=== PATIENT | male | born 1980 | race Hispanic/Latino ===

== ENCOUNTER 2017-07-14 12:03 | Emergency (ER) | payer OTHER, SELFPAY ==
[2017-07-14 12:33] LABS: #Basophils 0.1 thou/uL (0.0-0.2); #Lymphocytes 3.1 thou/uL (1.20-3.40); #Monocytes 0.4 thou/uL (0.11-0.59); #Neutrophils 4.1 thou/uL (1.40-6.50); %Eosinophils 0.5 % (0.0-10.0); %Monocytes 5.5 % (0.0-10.0); Hemoglobin 14.8 g/dL (14.0-18.0); Mean Corpuscular HGB CONC 35.2 g/dL (32.0-36.0); Mean Corpuscular Hemoglobin 29.6 pg (27.0-31.0); Mean Corpuscular Volume 84.1 fl (80.0-94.0); Mean Platelet Volume 7.3 fL (7.4-10.4); Platelet Count 344 thou/uL (130-400); RBC Distribution Width 12.5 % (11.5-14.5); Red Blood Cell (RBC) Count 4.99 mill/uL (4.70-6.10); White Blood Cell (WBC) Count 7.7 thou/uL (4.8-10.8)
[2017-07-14 12:58] LABS: ALT (SGPT) 195 U/L (8-55); AST (SGOT) 100 U/L (5-34); Alkaline Phosphatase 106 U/L (40-150); Anion Gap 15 mmol/L (10-20); BUN (Urea Nitrogen) 18 mg/dL (8.9-20.6); Bilirubin, Total 0.5 mg/dL (0.2-1.2); Calc. Creatinine Clearance 0 mL/min (70-130); Calcium 9.8 mg/dL (7.8-10.44); Carbon Dioxide 24 mmol/L (22-29); Chloride 99 mmol/L (98-107); Estimated GFR-MDRD Greater than 90; Glucose 134 mg/dL (70-105); Potassium 4.2 mmol/L (3.5-5.1); Sodium 134 mmol/L (136-145)
[2017-07-14] MEDS ORDERED: Ondansetron ODT 4 MG TAB ONE (13:47)
[2017-07-14] MEDS ORDERED: Morphine 4 MG/ML VIAL ONE (13:47)
[2017-07-14 14:55] LABS: Bilirubin Negative (Negative); Blood, Urine Trace (Negative); Clarity CLEAR (Clear); Glucose, Urine (Dipstick) Negative (Negative); Leukocyte Trace (Negative); Nitrite Negative (Negative); Protein, Urine (Dipstick) Negative (Neg-Trace); Specific Gravity, Urine 1.019 (1.002-1.036); Urobilinogen 0.2 mg/dL (0.2-1.0)
[2017-07-14 14:58] LABS: Bacteria/HPF None Seen HPF (None Seen); Hyaline Casts/LPF 0-3 HYALINE CAST LPF (0-3 Hyaline); Pathc Cast-AUWi Flag 0.14 (0-2.49); RBC/HPF 0-3 HPF (0-3); Squamous Epithelial 0-3 HPF (0-3); WBC/HPF 0-3 HPF (0-3)
[2017-07-14] MEDS ORDERED: ISOVUE-370 76%-LOCM 1 ML ONE (15:05)
[2017-07-14] MEDS ORDERED: Iopamidol 370 76% 50 ML VIAL FS ONE (15:05)
--- NOTE | 2017-07-14 15:53 | CT ---
CT ABDOMEN AND PELVIS WITH IV CONTRAST: 07/14/17 HISTORY: Abdominal pain which is increased from yesterday an patient now reports nausea and vomiting and diarr hea. COMPARISON: None available. FINDINGS: Minimal dependent bibasilar atelectasis is present. Liver demonstrates diminished attenuation likely related to mild fatty infiltration. Splenic granulom a is present. The pancreas, bilateral adrenal glands, kidneys, opacified bowel and urinary bladder demonstrate a no rmal CT appearance. The appendix is visualized and normal in caliber. There is no free fluid, fluid collection or lymphadenopathy seen in the abdomen or pelvis. IMPRESSION: 1. No acute findings are seen in the abdomen or pelvis. 2. No CT evidence of appendicitis. 3. Mild fatty infiltration of the liver. POS: [facility]
== END 2017-07-14 17:50 | disposition home or self-care (01) ==
LOC: ERS 12:03
DX: K29.70 Gastritis, unspecified, without bleeding (principal); E11.9 Type 2 diabetes mellitus without complications; E78.5 Hyperlipidemia, unspecified; F17.210 Nicotine dependence, cigarettes, uncomplicated; Z79.84 Long term (current) use of oral hypoglycemic drugs; Z79.899 Other long term (current) drug therapy
CPT/HCPCS: 36415; 74177; 80053; 81003; 81015; 83690; 85025; 96361; 96374; J2270; Q0162

== ENCOUNTER 2017-12-16 06:52 | Outpatient (CLI) | payer OTHER ==
--- NOTE | 2017-12-16 08:06 | ULT ---
RIGHT UPPER QUADRANT ULTRASOUND: DATE: 12/16/17. PROVIDED CLINICAL HISTORY: Right upper quadrant pain. FINDINGS: The visualized portions of the pancreas and IVC appear normal. The liver is enlarged measuring appro ximately 21 cm in craniocaudal dimension of the right hepatic lobe. There is diffuse increased echog enicity of the hepatic parenchyma compatible with fatty infiltration. No evidence for mass or intrah epatic biliary ductal dilatation. The common duct is not dilated. There is an echogenic mobile focu s present within the gallbladder lumen compatible with gallstone without evidence for wall thickening or pericholecystic fluid. The right kidney demonstrates no evidence for hydronephrosis or mass. IMPRESSION: 1. Fatty infiltration of the liver. 2. Cholelithiasis. POS: [facility]
== END 2017-12-16 06:53 | disposition home or self-care (01) ==
LOC: SCSULT 06:52
PROVIDERS: ATTEND Family Medicine
DX: R10.11 Right upper quadrant pain (principal); K80.20 Calculus of gallbladder without cholecystitis without obstruction; K76.0 Fatty (change of) liver, not elsewhere classified
CPT/HCPCS: 76705

== ENCOUNTER 2019-05-24 10:40 | Outpatient (CLI) | payer OTHER ==
--- NOTE | 2019-05-24 12:19 | RAD ---
2 VIEWS RIGHT HUMERUS: Date: 05/24/2019 COMPARISON: None. HISTORY: Fall with right arm pain. FINDINGS: Two views of the right humerus show no evidence of acute fracture or dislocation. No degenerative jeramie nges are seen. IMPRESSION: Unremarkable exam. POS: [place]
--- NOTE | 2019-05-24 12:20 | RAD ---
4 VIEWS RIGHT ELBOW: Date: 05/24/2019 HISTORY: Fall with right arm pain. FINDINGS: Four views of the right elbow show no evidence of acute fracture or dislocation. No degenerative huber ges are seen. No elbow effusion is present. IMPRESSION: No evidence of acute osseous abnormality. POS: [facility]
--- NOTE | 2019-05-24 12:20 | RAD ---
2 VIEWS: RIGHT FOREARM: Date: 05/24/2019 HISTORY: Fall with right arm pain. FINDINGS: Two views of the right forearm show no evidence of acute fracture or dislocation. No degenerative jeramie nges are seen. No soft tissue swelling is seen. IMPRESSION: No evidence of acute osseous abnormality. POS: [facility]
== END 2019-05-24 10:41 | disposition home or self-care (01) ==
LOC: BICRAD 10:40
DX: S59.911A Unspecified injury of right forearm, initial encounter (principal); S59.901A Unspecified injury of right elbow, initial encounter; S49.91XA Unspecified injury of right shoulder and upper arm, initial encounter

== ENCOUNTER 2021-04-11 11:19 | Emergency (ER) | payer SELFPAY ==
[~2021-04-11 11:19] MED LIST: Iopamidol 370 76% 100 ML VIAL ONE
[2021-04-11 12:55] LABS: #Basophils 0.1 thou/uL (0.0-0.2); #Eosinphils 0.1 thou/uL (0.0-0.7); #Lymphocytes 3.1 thou/uL (1.20-3.40); #Monocytes 0.4 thou/uL (0.11-0.59); #Neutrophils 3.6 thou/uL (1.40-6.50); %Basophils 1.5 % (0.0-1.0); %Eosinophils 1.1 % (0.0-10.0); %Lymphocytes 42.1 % (21.0-51.0); %Neutrophils 49.3 % (42.0-75.0); Hemoglobin 12.3 g/dL (14.0-18.0); Mean Corpuscular HGB CONC 33.5 g/dL (32.0-36.0); Mean Corpuscular Hemoglobin 28.4 pg (27.0-31.0); Mean Corpuscular Volume 84.7 fL (78.0-98.0); Mean Platelet Volume 7.5 fL (7.4-10.4); Platelet Count 364 thou/uL (130-400); RBC Distribution Width 12.8 % (11.5-14.5); Red Blood Cell (RBC) Count 4.32 mill/uL (4.70-6.10); White Blood Cell (WBC) Count 7.3 thou/uL (4.8-10.8)
[2021-04-11 13:26] LABS: ALT (SGPT) 73 U/L (8-55); AST (SGOT) 28 U/L (5-34); Albumin 4.5 g/dL (3.5-5.0); Alkaline Phosphatase 72 U/L (40-110); Anion Gap 16 mmol/L (10-20); BUN (Urea Nitrogen) 15 mg/dL (8.9-20.6); Bilirubin, Total 0.5 mg/dL (0.2-1.2); Calc. Creatinine Clearance 0 mL/min (70-130); Calcium 9.5 mg/dL (7.8-10.44); Carbon Dioxide 24 mmol/L (22-29); Chloride 101 mmol/L (98-107); Globulin 3.6 g/dL (2.4-3.5); Glucose 147 mg/dL (70-105); Potassium 3.9 mmol/L (3.5-5.1); Protein, Total 8.1 g/dL (6.0-8.3); Sodium 137 mmol/L (136-145)
== END 2021-04-11 14:05 | disposition home or self-care (01) ==
LOC: ERS 11:19
DX: K64.9 Unspecified hemorrhoids (principal); I10 Essential (primary) hypertension; E78.5 Hyperlipidemia, unspecified; E11.9 Type 2 diabetes mellitus without complications; F17.210 Nicotine dependence, cigarettes, uncomplicated
CPT/HCPCS: 74177; 80053; 85025; 93005; Q9967